=== PATIENT | female | born 1995 | race American Indian/Alaskan Native ===

== ENCOUNTER 2018-01-19 13:37 | Emergency (ER) | payer BC ==
[2018-01-19 13:37] VITALS: BMI 18.3
[2018-01-19 13:45] VITALS: BP 102/60; PULSE 85; RESP 16; TEMP 98.7
--- NOTE | 2018-01-19 14:06 | ED PDOC ---
Arrival/HPI - General Historian: Patient - History of Present Illness Narrative History of Present Illness (Text): 01/19/18 14:02 22yo female with no pmhx who present with complaint of rash to her face and body since yesterday. States she is not sure if is insect bite or allergic reaction. enies any inciting factors. Denies SOB, tongue swelling, neck pain, fever, nuchal ridigity, any other complaint. <DirconchitaHappiness A - Last Filed: 01/19/18 15:43> <Rashid King - Last Filed: 01/19/18 16:01> - General Chief Complaint: Abnormal Skin Integrity Time Seen by Provider: 01/19/18 13:52 Past Medical History - Provider Review Nursing Documentation Reviewed: Yes - Infectious Disease Hx of Infectious Diseases: None - Cardiac Hx Cardiac Disorders: No - Pulmonary Hx Respiratory Disorders: No - Neurological Hx Neurological Disorder: No - HEENT Hx HEENT Disorder: No - Renal Hx Renal Disorder: No - Endocrine/Metabolic Hx Endocrine Disorders: No - Hematological/Oncological Hx Blood Disorders: No - Integumentary Hx Dermatological Disorder: No - Musculoskeletal/Rheumatological Hx Musculoskeletal Disorders: Yes Other/Comment: SCOLIOSIS - Gastrointestinal Hx Gastrointestinal Disorders: Yes Hx Gastritis: Yes - Genitourinary/Gynecological Hx Genitourinary Disorders: Yes Hx Urinary Tract Infection: Yes - Psychiatric Hx Psychophysiologic Disorder: No Hx Substance Use: No - Anesthesia Hx Anesthesia: No - Suicidal Assessment Feels Threatened In Home Enviroment: No <DirconchitaHappiness A - Last Filed: 01/19/18 15:43> Family/Social History - Physician Review Nursing Documentation Reviewed: Yes Family/Social History: Unknown Family HX Smoking Status: Never Smoked Hx Alcohol Use: Yes Hx Substance Use: No <DiruHappiness A - Last Filed: 01/19/18 15:43> Allergies/Home Meds <DiruHappiness A - Last Filed: 01/19/18 15:43> <Rashid iKng - Last Filed: 01/19/18 16:01> Allergies/Adverse Reactions: Allergies Penicillins Allergy (Verified 01/19/18 13:39) RASH Review of Systems - Physician Review All systems were reviewed & negative as marked: Yes - Review of Systems Constitutional: Normal Eyes: Normal ENT: Normal Respiratory: Normal Cardiovascular: Normal Gastrointestinal: Normal Genitourinary Female: Normal Musculoskeletal: Normal Skin: Rash Neurological: Normal Endocrine: Normal Hemo/Lymphatic: Normal Psychiatric: Normal <Jean Gautam A - Last Filed: 01/19/18 15:43> Physical Exam Vital Signs Reviewed: Yes Vital Signs Temp Pulse Resp BP Pulse Ox 01/19/18 13:40 98.7 F 85 16 102/60 98 Temperature: Afebrile Blood Pressure: Normal Pulse: Regular Respiratory Rate: Normal Appearance: Positive for: Well-Appearing, Non-Toxic, Comfortable Pain Distress: None Mental Status: Positive for: Alert and Oriented X 3 - Systems Exam Head: Present: Atraumatic, Normocephalic Pupils: Present: PERRL Extroacular Muscles: Present: EOMI Conjunctiva: Present: Normal Mouth: Present: Moist Mucous Membranes Neck: Present: Normal Range of Motion Respiratory/Chest: Present: Clear to Auscultation, Good Air Exchange. No: Respiratory Distress, Accessory Muscle Use Cardiovascular: Present: Regular Rate and Rhythm, Normal S1, S2. No: Murmurs Abdomen: No: Tenderness, Distention, Peritoneal Signs Back: Present: Normal Inspection Upper Extremity: Present: Normal Inspection. No: Cyanosis, Edema Lower Extremity: Present: Normal Inspection. No: Edema Neurological: Present: GCS=15, CN II-XII Intact, Speech Normal Skin: Present: Warm, Dry, Rashes (Hive noted to right chin and b/l arm), Normal Color Psychiatric: Present: Alert, Oriented x 3, Normal Insight, Normal Concentration <Jean Gautam A - Last Filed: 01/19/18 15:43> Vital Signs Temp Pulse Resp BP Pulse Ox 01/19/18 14:18 98.7 F 85 16 102/60 99 01/19/18 13:40 98.7 F 85 16 102/60 98 <Rashid King - Last Filed: 01/19/18 16:01> Medical Decision Making ED Course and Treatment: 01/19/18 15:43 Pt presented for stated history. she was not in any acute distress. she states she will drive and Benadryl will make her sleepy. she was treated with pepcid and Prednisone. DC home with prednisone and xyzal. 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 <Rashid King - Last Filed: 01/19/18 16:01> Disposition/Present on Arrival - Present on Arrival Any Indicators Present on Arrival: No History of DVT/PE: No History of Uncontrolled Diabetes: No Urinary Catheter: No History of Decub. Ulcer: No History Surgical Site Infection Following: None - Disposition Have Diagnosis and Disposition been Completed?: Yes Disposition Time: 14:10 Patient Plan: Discharge <Jean Gautam - Last Filed: 01/19/18 15:43> <Rashid King - Last Filed: 01/19/18 16:01> - Disposition Diagnosis: Hives Disposition: HOME/ ROUTINE Condition: STABLE Discharge Instructions (ExitCare): Hives (DC) Additional Instructions: Follow up with your doctor/[facility] Return to ED for any new or worsening symptoms Prescriptions: Levocetirizine Dihydrochloride [Xyzal] 5 mg PO DAILY #10 tablet predniSONE [Prednisone] 10 mg PO DAILY #4 tab Referrals: Leilani Dang MD [Staff Provider] - Follow up with primary Forms: [employer] (Swedish)
[2018-01-19 14:18] VITALS: O2SAT 99
== END 2018-01-19 14:18 | disposition home or self-care (01) ==
LOC: ED 13:37
DX: L50.9 Urticaria, unspecified (principal)

== ENCOUNTER 2018-08-11 09:02 | Emergency (ER) | payer BC ==
[2018-08-11 09:03] VITALS: BMI 18.3
[2018-08-11 10:05] LABS: BASO # 0.02 K/mm3 (0.0-2.0); BASO % 0.6 % (0.0-3.0); EOS % 0.9 % (1.5-5.0); HEMOGLOBIN 13.8 g/dL (12.0-16.0); LYMPH # 1.6 (1.2-3.4); MEAN CELL VOLUME 90.5 fl (80.0-105.0); MEAN CORPUSCULAR HEMOGLOBIN 31.2 pg (25.0-35.0); MEAN CORPUSCULAR HGB CONC 34.5 g/dl (31.0-37.0); MEAN PLATELET VOLUME 9.7 fl (7.0-11.0); MONO # 0.3 (0.1-0.6); RBC 4.42 10^6/uL (3.5-6.1); RED CELL DISTRIBUTION WIDTH 12.4 % (11.5-14.5); WHITE BLOOD COUNT 3.3 10^3/uL (4.5-11.0)
--- NOTE | 2018-08-11 10:11 | ED PDOC ---
Arrival/HPI - General Chief Complaint: Chest Pain Time Seen by Provider: 08/11/18 09:16 - History of Present Illness Narrative History of Present Illness (Text): 08/11/18 10:09 23 f with no significant pmhx presents to the ED with chief complaint of mid l ower chest wall pain, intermittent, onset 2 days ago, localized, described as pressure/tightness, no inciting event, no exacerbating factors, no recent prolonged immobilization. Time/Duration: < week (2 days.) Symptom Course: Intermittent Quality: Pressure, Tightness Activities at Onset: Light Past Medical History - Provider Review Nursing Documentation Reviewed: Yes - Infectious Disease Hx of Infectious Diseases: None - Reproductive Menopause: No - Cardiac Hx Cardiac Disorders: No - Pulmonary Hx Respiratory Disorders: No - Neurological Hx Neurological Disorder: No - HEENT Hx HEENT Disorder: No - Renal Hx Renal Disorder: No - Endocrine/Metabolic Hx Endocrine Disorders: No - Hematological/Oncological Hx Blood Disorders: No - Integumentary Hx Dermatological Disorder: No - Musculoskeletal/Rheumatological Hx Musculoskeletal Disorders: Yes Other/Comment: SCOLIOSIS - Gastrointestinal Hx Gastrointestinal Disorders: Yes Hx Gastritis: Yes - Genitourinary/Gynecological Hx Genitourinary Disorders: Yes Hx Urinary Tract Infection: Yes - Psychiatric Hx Psychophysiologic Disorder: No Hx Substance Use: No - Anesthesia Hx Anesthesia: No - Suicidal Assessment Feels Threatened In Home Enviroment: No Family/Social History - Physician Review Nursing Documentation Reviewed: Yes Family/Social History: Unknown Family HX Smoking Status: Never Smoked Hx Alcohol Use: Yes Hx Substance Use: No Allergies/Home Meds Allergies/Adverse Reactions: Allergies Penicillins Allergy (Verified 08/11/18 09:17) RASH Review of Systems - Physician Review All systems were reviewed & negative as marked: Yes - Review of Systems Cardiovascular: Chest Pain Physical Exam Vital Signs Reviewed: Yes Vital Signs Temp Pulse Resp BP Pulse Ox 08/11/18 09:14 97.2 F L 76 18 116/76 98 Temperature: Afebrile Blood Pressure: Normal Pulse: Regular Respiratory Rate: Normal Appearance: Positive for: Well-Appearing, Non-Toxic, Comfortable Pain Distress: Mild Mental Status: Positive for: Alert and Oriented X 3 - Systems Exam Pupils: Present: PERRL Extroacular Muscles: Present: EOMI Neck: No: JVD Respiratory/Chest: Present: Clear to Auscultation, Other (Breath sounds equal. there is mild to moderate reproducible lower middle chest wall tendnerness). No : Respiratory Distress, Wheezes, Rales, Rhonchi Cardiovascular: Present: Regular Rate and Rhythm, Normal S1, S2. No: Murmurs, Rub Abdomen: Present: Other (Soft, no rigidity. ). No: Tenderness, Rebound, Guarding Upper Extremity: No: Edema Lower Extremity: No: Edema Neurological: Present: CN II-XII Intact Skin: Present: Normal Color, Other (no cyanosis. ). No: Rashes Psychiatric: Present: Oriented x 3 Medical Decision Making ED Course and Treatment: 08/11/18 10:44 very mildly elevated dimer, will repeat test to confirm accuracy 08/11/18 12:05 repeat dimer essentially normal. case and thought process discussed in detail with the patient and it was agreed as a shared decision to forego CT imaging as there is still a low clinical concern for PE. patient has full understanding of plan and will follow up with pcp. patient understands to return immediately for any new or worsening symptoms. - RAD Interpretation Narrative RAD Interpretations (Text): 08/11/18 11:15 Chest X-ray Impression: No active disease Radiology Orders: 08/11/18 09:24 CHEST PORTABLE [RAD] Stat Director Work: Radiologist - EKG Interpretation EKG Interpretation (Text): 08/11/18 9:12 EKG reviewed: NSR at 77 bpm, nml qrs, nml axis, no acute sttw abn. Interpreted by ED Physician: Yes Type: 12 lead EKG - Scribe Statement The provider has reviewed the documentation as recorded by the Scribsamir Patel All medical record entries made by the Ismaibe were at my direction and personally dictated by me. I have reviewed the chart and agree that the record accurately reflects my personal performance of the history, physical exam, medical decision making, and the department course for this patient. I have also personally directed, reviewed, and agree with the discharge instructions and disposition. Disposition/Present on Arrival - Present on Arrival Any Indicators Present on Arrival: No History of DVT/PE: No History of Uncontrolled Diabetes: No Urinary Catheter: No History of Decub. Ulcer: No History Surgical Site Infection Following: None - Disposition Have Diagnosis and Disposition been Completed?: Yes Diagnosis: Costochondritis Disposition: HOME/ ROUTINE Disposition Time: 12:10 Patient Plan: Discharge Condition: STABLE Discharge Instructions (ExitCare): Costochondritis (DC) Additional Instructions: return for any new or worsening symptoms. Prescriptions: Ibuprofen [Motrin Tab] 600 mg PO QID #30 tab Referrals: Florencia Thomas MD [Primary Care Provider] - Follow up with primary [facility] [Outside] - Follow up with primary Forms: [facility] (N[place]ian), WORK NOTE, SCHOOL NOTE
[2018-08-11 10:15] LABS: ALB/GLOB RATIO 1.3 (1.1-1.8); ALBUMIN 4.4 g/dL (3.0-4.8); ALT/SGPT 22 U/L (7-56); AST/SGOT 34 U/L (14-36); BLOOD UREA NITROGEN 9 mg/dL (7-21); CALCIUM 9.5 mg/dL (8.4-10.5); GFR NON-AFRICAN AMERICAN > 60; LIPASE 91 U/L (23-300)
[2018-08-11 10:27] LABS: TROPONIN I < 0.01 ng/mL
--- NOTE | 2018-08-11 11:19 | RAD ---
Date of service: 08/11/2018 HISTORY: chest pain COMPARISON: No prior. TECHNIQUE: 1 view obtained. FINDINGS: LUNGS: No active pulmonary disease. PLEURA: No significant pleural effusion identified, no pneumothorax apparent. CARDIOVASCULAR: No aortic atherosclerotic calcification present. Normal cardiac size. No pulmonary vascular congestion. OSSEOUS STRUCTURES: Moderate scoliotic curvature to the right VISUALIZED UPPER ABDOMEN: Normal. OTHER FINDINGS: None. IMPRESSION: No active disease.
[2018-08-11 11:51] VITALS: O2SAT 100
[2018-08-11 12:38] VITALS: BP 111/67; PULSE 88; RESP 18; TEMP 98.7
--- NOTE | 2018-08-11 17:52 | CARD ---
APPROVED REPORT Date of service: 08/11/2018 EKG Measurement Heart [id number] <Conclusion> Normal sinus rhythm Normal ECG
== END 2018-08-11 12:38 | disposition home or self-care (01) ==
LOC: ED 09:02
DX: M94.0 Chondrocostal junction syndrome [Tietze] (principal)